=== PATIENT | female | born 1990 | race Caucasian/White ===

== ENCOUNTER 2017-05-15 20:53 | Inpatient (IN) | payer BC ==
[2017-05-15] MEDS ORDERED: Sodium Chloride 0.9% 10 ML Syringe FLUSH PRN (22:23)
[2017-05-15] MEDS ORDERED: Ondansetron 4 MG/2 ML SDV IVPUSH PRN (22:23)
[2017-05-15] MEDS ORDERED: Nalbuphine 20 MG/1 ML Amp IVPUSH PRN (22:23)
[2017-05-15] MEDS ORDERED: Oxytocin/Lactated Ringers 10 UNIT/1,000 ML BAG IV SCH (22:30)
[2017-05-15] MEDS ORDERED: Lactated Ringers 1,000 ML IV SCH (22:30)
[2017-05-15] MEDS ORDERED: Lidocaine 1% 50 ML MDV INJECT SCH (22:30)
--- NOTE | 2017-05-16 01:17 | PCM.LDHP ---
L&D History of Present Illness - General Date of Service: 05/15/17 Admit Problem/Dx: Patient Status Order with Admit Dx/Problem 05/15/17 22:23 Patient Status [ADT] Routine Admission Diagnosis/Problem Admission Diagnosis/Problem Source of Information: Patient - History of Present Illness Introduction:: 26 year old at 39w0d presents with painful contractions that started this morning and got progressively stronger over the day. Worse starting at 5 pm. No loss of fluid or bleeding. care with myself without complication. 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, Social & Family History - Tobacco Use Smoking Status *Q: Former Smoker Used Tobacco, but Quit: Yes Month Tobacco Last Used: quit 04/2015 Second Hand Smoke Exposure: No - Caffeine Use Caffeine Use: Reports: Coffee - Recreational Drug Use Recreational Drug Use: No H&P Review of Systems - Review of Systems: Review Of Systems: See Below General: Reports: No Symptoms HEENT: Reports: No Symptoms Pulmonary: Reports: No Symptoms Cardiovascular: Reports: No Symptoms Gastrointestinal: Reports: No Symptoms Genitourinary: Reports: No Symptoms Musculoskeletal: Reports: No Symptoms Skin: Reports: No Symptoms Psychiatric: Reports: No Symptoms Neurological: Reports: No Symptoms Hematologic/Lymphatic: Reports: No Symptoms Immunologic: Reports: No Symptoms L&D Exam - Exam Exam: See Below - Vital Signs Vital Signs: Last Vital Signs Temp 36.9 C 05/15/17 22:23 Pulse 100 05/15/17 22:23 Resp 16 05/15/17 22:23 BP 133/71 05/15/17 22:23 Pulse Ox Weight: 78.018 kg - OB Specific Contraction Intensity: Moderate Movement: Active Heart Tones: Present Heart Tones per Min: 130 Presentation: Vertex - Euceda Score Euceda Score Cervix Position: Midposition Euceda Score Consistency: Medium Euced[place] Score Effacement: 51-70% Euceda Score Dilation: > 5 cm Euceda Score Infant's Station: -2 Euceda Score Total: 8 - Exam General: Alert, Oriented HEENT: PERRLA, Conjunctiva Clear, EACs Clear, EOMI, Hearing Intact, Mucosa Moist & [place], Nares Patent, Normal Nasal Septum, Posterior Pharynx Clear, TMs Clear Neck: Supple, Trachea Midline Lungs: Clear to Auscultation, Normal Respiratory Effort Cardiovascular: Regular Rate, Regular Rhythm GI/Abdominal Exam: Normal Bowel Sounds, Soft, Non-Tender, No Organomegaly, No Distention, No Abnormal Bruit, No Mass, Pelvis Stable Genitourinary: Normal external exam, Normal bimanual exam, Normal speculum exam Back Exam: Normal Inspection, Full Range of Motion Extremities: Normal Inspection, Normal Range of Motion, Non-Tender, No Pedal Edema, Normal Capillary Refill Skin: Warm, Dry, Intact Neurological: Cranial Nerves Intact, Reflexes Equal Bilateral Psychiatric: Alert, Normal Affect, Normal Mood - Patient Data Lab Results Last 24 hrs: Laboratory Results - last 24 hr 05/15/17 05/15/17 Range/Units 21:21 21:21 WBC 17.27 H (3.98-10.04) K/mm3 RBC 4.36 (3.98-5.22) M/mm3 Hgb 12.7 (11.2-15.7) gm/L Hct 38.2 (34.1-44.9) % MCV 87.6 (79.4-94.8) fl MCH 29.1 (25.6-32.2) pg MCHC 33.2 (32.2-35.5) g/dl RDW Std Deviation 39.4 (36.4-46.3) fL Plt Count 195 (182-369) K/mm3 MPV 11.2 (9.4-12.3) fl Neut % (Auto) 80.9 H (34.0-71.1) % Lymph % (Auto) 13.0 L (19.3-51.7) % [place] % (Auto) 5.5 (4.7-12.5) % Eos % (Auto) 0.2 L (0.7-5.8) Baso % (Auto) 0.1 (0.1-1.2) % Neut # (Auto) 13.96 H (1.56-6.13) K/mm3 Lymph # (Auto) 2.25 (1.18-3.74) K/mm3 [place] # (Auto) 0.95 H (0.24-0.36) K/mm3 Eos # (Auto) 0.03 L (0.04-0.36) K/mm3 Baso # (Auto) 0.02 (0.01-0.08) K/mm3 Blood Type O POSITIVE Gel Antibody Screen Negative Result Diagrams: 05/15/17 21:21 Problem List Initiated/Reviewed/Updated: Yes Orders Last 24hrs: Active Orders 24 hr Category Date Time Status Patient Status [ADT] Routine ADT 05/15/17 22:23 Active Activity as Tolerated [RC] PFP Care 05/15/17 22:23 Active Communication Order [RC] ASDIRECTED Care 05/15/17 22:23 Active Notify Provider [RC] PFP Care 05/15/17 22:23 Active Notify Provider [RC] PRN Care 05/15/17 22:23 Active Peripheral IV Care [RC] . DIRECTED Care 05/15/17 22:23 Active Pump Management, Intrathecal [RC] ASDIRECTED Care 05/15/17 22:24 Active Vital Signs [RC] PER UNIT ROUTINE Care 05/15/17 22:23 Active Lactated Ringers [Ringers, Lactated] 1,000 ml Med 05/15/17 22:30 Active IV ASDIRECTED Lidocaine 1% [Xylocaine 1%] Med 05/15/17 22:30 Active 50 ml INJECT .ONETIME Nalbuphine [Nubain] Med 05/15/17 22:23 Active 10 mg IVPUSH Q2H PRN Ondansetron [Zofran] Med 05/15/17 22:23 Active 4 mg IVPUSH Q4H PRN Oxytocin/Lactated Ringers [Pitocin in LR 10 Units/1,000 Med 05/15/17 22:30 Active ML] 10 unit in 1,000 ml IV .CONTINUOUS Sodium Chloride 0.9% [Saline Flush] Med 05/15/17 22:23 Active 10 ml FLUSH ASDIRECTED PRN Electronic Heart Tones Ext w TOCO [WOMSER] Oth 05/15/17 22:23 Ordered Routine Electronic Heart Tones Internal [WOMSER] Per Unit Oth 05/15/17 22:23 Ordered Routine Peripheral IV Insertion Adult [OM.PC] Routine Oth 05/15/17 22:23 Ordered Resuscitation Status Routine Resus Stat 05/15/17 22:23 Ordered Medication Orders Lactated Ringer's (Ringers, Lactated) 1,000 mls @ 100 mls/hr IV ASDIRECTED [place] Oxytocin/Lactated Ringer's (Pitocin In Lr 10 Units/1,000 Ml) 10 unit in 1,000 mls @ 500 mls/hr IV .CONTINUOUS [place] Lidocaine HCl (Xylocaine 1%) 50 ml INJECT .ONETIME [place] Nalbuphine HCl (Nubain) 10 mg IVPUSH Q2H PRN PRN Reason: Pain (moderate 4-6) Last Admin: 05/15/17 22:48 Dose: 10 mg Ondansetron HCl (Zofran) 4 mg IVPUSH Q4H PRN PRN Reason: Nausea/Vomiting Sodium Chloride (Saline Flush) 10 ml FLUSH ASDIRECTED PRN PRN Reason: Keep Vein Open Assessment/Plan Comment:: Term labor. Doing well. Declines epidural. Anticipate unless otherwise indicated.
[2017-05-16] MEDS ORDERED: Benzocaine/Menthol 20%-0.5% Spray 56 GM Canister TOP PRN (01:40)
[2017-05-16] MEDS ORDERED: Witch Hazel Medicated Pads 100/Jar TOP PRN (01:40)
[2017-05-16] MEDS ORDERED: Lanolin 100% Cream 7 GM Tube TOP PRN (01:40)
[2017-05-16] MEDS ORDERED: Ibuprofen 600 MG Tab PO PRN (01:40)
[2017-05-16] MEDS ORDERED: Docusate Sodium 100 MG Cap PO PRN (01:40)
[2017-05-17 05:11] VITALS: BP 100/52
--- NOTE | 2017-05-17 09:07 | PCM.DCSUM1 ---
Discharge Summary - Discharge Data Discharge Date: 05/17/17 Discharge Disposition: Home, Self-Care 01 Condition: Good - Patient Summary/Data Hospital Course: Routine labor and course - Patient Instructions Diet: Usual Diet as Tolerated Activity: No Strenuous Activities Driving: May Drive Today Showering/Bathing: May Shower Wound/Incision Care: Keep Operative Site/Wound Site Clean and Dry, Change Dressing Daily, Do NOT Change Dressing Notify Provider of: Fever - Discharge Plan Home Medications: Home Meds Vits #93/Iron Fum/FA [ Formula Tablet] 1 tab PO DAILY 05/16/17 [History] Patient Handouts: Home Care Instructions for Mom Referrals: Marisa Briggs MD [Primary Care Provider] - (6 weeks) - Discharge Summary/Plan Comment DC Time >30 min.: No - General Info Date of Service: 05/17/17 Functional Status: Reports: Pain Controlled - Review of Systems General: Reports: No Symptoms HEENT: Reports: No Symptoms Pulmonary: Reports: No Symptoms Cardiovascular: Reports: No Symptoms Gastrointestinal: Reports: No Symptoms Genitourinary: Reports: No Symptoms Musculoskeletal: Reports: No Symptoms Skin: Reports: No Symptoms Neurological: Reports: No Symptoms Psychiatric: Reports: No Symptoms - Patient Data Vitals - Most Recent: Last Vital Signs Temp 36.1 C 05/17/17 04:49 Pulse 31 L 05/17/17 04:49 Resp 16 05/17/17 04:49 BP 100/52 L 05/17/17 04:49 Pulse Ox 95 05/17/17 04:49 Weight - Most Recent: 78.018 kg I&O - Last 24 hours: Intake & Output 05/16/17 05/17/17 05/17/17 22:59 06:59 14:59 Intake Total 0 Balance 0 Med Orders - Current: Current Medications Benzocaine/Menthol (Dermoplast Pain Relief [place]) 0 gm TOP ASDIRECTED PRN PRN Reason: Perineal Comfort Measure Docusate Sodium (Colace) 100 mg PO BID PRN PRN Reason: Constipation Emollient Ointment (Lansinoh Hpa) 0 gm TOP ASDIRECTED PRN PRN Reason: Sore Nipples Ibuprofen (Motrin) 600 mg PO Q6H PRN PRN Reason: Mild pain or fever [place] (Tucks) 1 pad TOP ASDIRECTED PRN PRN Reason: Hemorrhoid pain Discontinued Medications Lactated Ringer's (Ringers, Lactated) 1,000 mls @ 100 mls/hr IV ASDIRECTED [place] Oxytocin/Lactated Ringer's (Pitocin In Lr 10 Units/1,000 Ml) 10 unit in 1,000 mls @ 500 mls/hr IV .CONTINUOUS [place] Last Admin: 05/16/17 00:55 Dose: 500 mls/hr Lidocaine HCl (Xylocaine 1%) 50 ml INJECT .ONETIME [place] Last Admin: 05/16/17 01:00 Dose: 50 ml Nalbuphine HCl (Nubain) 10 mg IVPUSH Q2H PRN PRN Reason: Pain (moderate 4-6) Last Admin: 05/15/17 22:48 Dose: 10 mg Ondansetron HCl (Zofran) 4 mg IVPUSH Q4H PRN PRN Reason: Nausea/Vomiting Sodium Chloride (Saline Flush) 10 ml FLUSH ASDIRECTED PRN PRN Reason: Keep Vein Open - Exam General: Reports: Alert, Oriented HEENT: Reports: Pupils Equal, Pupils Reactive, EOMI, Mucous Membr. Moist/[place] Neck: Reports: Supple Lungs: Reports: Clear to Auscultation, Normal Respiratory Effort Cardiovascular: Reports: Regular Rate, Regular Rhythm GI/Abdominal Exam: Normal Bowel Sounds, Soft, Non-Tender, No Organomegaly, No Distention, No Abnormal Bruit, No Mass, Pelvis Stable Back Exam: Reports: Normal Inspection, Full Range of Motion Extremities: Normal Inspection, Normal Range of Motion, Non-Tender, No Pedal Edema, Normal Capillary Refill Skin: Reports: Warm, Dry, Intact Wound/Incisions: Reports: Healing Well Neurological: Reports: No New Focal Deficit Psy/Mental Status: Reports: Alert, Normal Affect, Normal Mood *Q Meaningful Use (DIS) - VTE *Q VTE Criteria *Q: - Stroke *Q Stroke Criteria *Q: - AMI *Q AMI Criteria *Q:
== END 2017-05-17 09:50 | disposition home or self-care (01) | DRG 560 ==
LOC: JD.OBCHECK 20:53 → JD.OB 20:57 → JD.OBCHECK 22:29 → JD.OB 22:31 → OBSVTOIN 05-16 00:51
PROVIDERS: ADMIT Obstetrics & Gynecology; ATTEND Obstetrics & Gynecology
PROC: 10E0XZZ Delivery of Products of Conception, External Approach (ICD-10-PCS; principal; 2017-05-16)
PROC: 10907ZC Drainage of Amniotic Fluid, Therapeutic from Products of Conception, Via Natural or Artificial Opening (ICD-10-PCS; 2017-05-16)
PROC: 0HQ9XZZ Repair Perineum Skin, External Approach (ICD-10-PCS; 2017-05-16)
DX: O70.0 First degree perineal laceration during delivery (principal); Z3A.39 39 weeks gestation of pregnancy; Z37.0 Single live birth; Z88.1 Allergy status to other antibiotic agents; Z87.891 Personal history of nicotine dependence
CPT/HCPCS: 36415; 59300; 59409; 85025; 86850; 86900; 86901; J2300; J2590

== ENCOUNTER 2017-05-24 07:48 | Emergency (ER) | payer BC ==
[2017-05-24] MEDS ORDERED: Sodium Chloride 0.9% 10 ML Syringe FLUSH PRN (07:57)
[2017-05-24] MEDS ORDERED: HYDROmorphone 0.5 MG/0.5 ML Syringe IVPUSH ONE ×2 (07:57→08:34)
[2017-05-24] MEDS ORDERED: Sodium Chloride 0.9% 500 ML IV ONE ×2 (08:02→09:15)
[2017-05-24] MEDS ORDERED: LORazepam 2 MG/ML MDV IVPUSH ONE (08:02)
[2017-05-24] MEDS ORDERED: Ondansetron 4 MG/2 ML SDV IVPUSH ONE (08:02)
--- NOTE | 2017-05-24 08:27 | EDM.PDOC ---
ED HPI GENERAL MEDICAL PROBLEM - General Chief Complaint: Abdominal Pain Stated Complaint: ABDOMINAL PAIN/POST 1 WEEK Time Seen by Provider: 05/24/17 07:56 Source of Information: Reports: Patient, RN Notes Reviewed - History of Present Illness INITIAL COMMENTS - FREE TEXT/NARRATIVE: Plan 26-year-old female comes in with sudden onset of severe pelvic pain. This started about 30-40 minutes ago. She had been totally pain-free during the night and earlier this morning. She is about 8 days , status post vaginal delivery with no apparent complications. He has been having normal flow. The does not have bright red vaginal bleeding this morning nor has she been passing clots or tissue. She does not feel like she has had voiding symptomatology and has had no difficulty emptying her bladder. The pain is severe lower mid pelvis, described as steady discomfort with possible superimposed cramping with some radiation to her back. 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: Reports: 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 Denies: Vomiting : Reports: Other (She's been having but seems to been normal flow) . Denies: Dysuria Musculoskeletal: Reports: Back Pain Skin: Reports: No Symptoms Neurological: Reports: No Symptoms ED EXAM, RENAL/ - Physical Exam Exam: See Below General Appearance: Alert, Severe Distress Eye Exam: Bilateral Eye: PERRL Throat/Mouth: Normal Inspection Head: No: Facial Swelling Neck: Supple, Full Range of Motion Respiratory/Chest: No Respiratory Distress, Lungs Clear, Normal Breath Sounds Cardiovascular: Regular Rate, Rhythm GI/Abdominal: Tender (very tender lower mid and R pelvis). No: Guarding, Rebound Back Exam: No: CVA Tenderness (L), CVA Tenderness (R) Extremities: Normal Inspection, Normal Range of Motion Neurological: Alert, Oriented, No Motor/Sensory Deficits Skin Exam: Warm, Dry, Normal Color Course - Vital Signs Last Recorded V/S: Last Vital Signs Temp 97.7 F 05/24/17 10:57 Pulse 62 05/24/17 10:57 Resp 16 05/24/17 10:57 BP 91/53 L 05/24/17 10:57 Pulse Ox 97 05/24/17 10:57 - Orders/Labs/Meds Orders: Active Orders 24 hr Category Date Time Status Insert Gomes Catheter [Insert Urinary Catheter] [OM.PC] Care 05/24/17 09:20 Ordered Stat Peripheral IV Care [RC] . DIRECTED Care 05/24/17 07:57 Active Ready for Discharge [RC] PER UNIT ROUTINE Care 05/24/17 10:20 Active Urinary Catheter Assessment [RC] ASDIRECTED Care 05/24/17 09:20 Active Transvaginal Non OB [US] Stat Exams 05/24/17 08:04 Taken CULTURE GENITAL [RM] Stat Lab 05/24/17 10:05 Received Peripheral IV Insertion Adult [OM.PC] Stat Oth 05/24/17 07:57 Ordered Labs: Laboratory Tests 05/24/17 05/24/17 Range/Units 07:55 09:25 WBC 8.44 (3.98-10.04) K/mm3 RBC 4.84 (3.98-5.22) M/mm3 Hgb 14.2 (11.2-15.7) gm/L Hct 42.8 (34.1-44.9) % MCV 88.4 (79.4-94.8) fl MCH 29.3 (25.6-32.2) pg MCHC 33.2 (32.2-35.5) g/dl RDW Std Deviation 39.8 (36.4-46.3) fL Plt Count 459 H (182-369) K/mm3 MPV 9.8 (9.4-12.3) fl Neut % (Auto) 47.8 (34.0-71.1) % Lymph % (Auto) 43.1 (19.3-51.7) % [place] % (Auto) 7.1 (4.7-12.5) % Eos % (Auto) 1.4 (0.7-5.8) Baso % (Auto) 0.5 (0.1-1.2) % Neut # (Auto) 4.03 (1.56-6.13) K/mm3 Lymph # (Auto) 3.64 (1.18-3.74) K/mm3 [place] # (Auto) 0.60 H (0.24-0.36) K/mm3 Eos # (Auto) 0.12 (0.04-0.36) K/mm3 Baso # (Auto) 0.04 (0.01-0.08) K/mm3 Urine Color Yellow (Yellow) Urine Appearance Clear (Clear) Urine pH 6.0 (5.0-8.0) Ur Specific [place] 1.020 (1.005-1.030) Urine Protein Negative (Negative) Urine Glucose (UA) Negative (Negative) Urine Ketones Negative (Negative) Urine Occult Blood Negative (Negative) Urine Nitrite Negative (Negative) Urine Bilirubin Negative (Negative) Urine Urobilinogen 0.2 (0.2-1.0) Ur Leukocyte Esterase Negative (Negative) Urine RBC Not seen (0-5) /hpf Urine WBC 0-5 (0-5) /hpf Ur Epithelial Cells 0-5 (0-5) /hpf Urine Bacteria Few (FEW) /hpf Urine Mucus Few (FEW) /hpf Meds: Medications Discontinued Medications Generic Name Dose Route Start Last Admin Trade Name Freq PRN Reason Stop Dose Admin Hydromorphone HCl 0.5 mg 05/24/17 07:57 05/24/17 08:00 Dilaudid IVPUSH 05/24/17 07:58 0.5 mg ONETIME ONE Administration Hydromorphone HCl 0.5 mg 05/24/17 08:34 05/24/17 08:37 Dilaudid IVPUSH 05/24/17 08:35 0.5 mg ONETIME ONE Administration Sodium Chloride 500 mls @ 999 mls/hr 05/24/17 08:02 05/24/17 08:13 Normal Saline IV 05/24/17 08:32 999 mls/hr .BOLUS ONE Administration Sodium Chloride 500 mls @ 999 mls/hr 05/24/17 09:15 05/24/17 09:30 Normal Saline IV 05/24/17 09:45 999 mls/hr .BOLUS ONE Administration Lorazepam 0.5 mg 05/24/17 08:02 05/24/17 08:08 Ativan IVPUSH 05/24/17 08:03 0.5 mg ONETIME ONE Administration Ondansetron HCl 4 mg 05/24/17 08:02 05/24/17 08:10 Zofran IVPUSH 05/24/17 08:03 4 mg ONETIME ONE Administration Sodium Chloride 10 ml 05/24/17 07:57 05/24/17 08:12 Saline Flush FLUSH 10 ml ASDIRECTED PRN Administration Keep Vein Open - Re-Assessments/Exams Free Text/Narrative Re-Assessment/Exam: 05/24/17 08:25. Much more comfortable after Dilaudid 0.5 mg IV, Ativan 0.5 mg IV. He still does have lower midline pelvic discomfort that she now states is more to the right. Main focus on arrival to get her more comfortable. Have not done pelvic exam yet, US tech is here so going to get that done now. 08:35. Pain starting to worsen again so will carefully give another 0.5 mg dilaudid. 05/24/17 10:16. Dr Briggs here to see her, US is back, nothing apparent ovarian, good blood flow to both ovaries, uterus appears relatively normal for 8 days . Pt's level of pain much improved from arrival. Dr Briggs considering discharge options at this time. Departure - Departure Time of Disposition: 10:51 Disposition: Home, Self-Care 01 Condition: Fair Clinical Impression: Pelvic pain - Discharge Information Instructions: Pelvic Pain, Female, [id number] Referrals: Marisa Briggs MD [Primary Care Provider] - (Sunday in clinic. Sooner if any issues.) Forms: ED Department Discharge Additional Instructions: Rest, pain medication and antibiotics as prescribed by Dr. Mcguire, Follow up with Dr. Mcguire as planned, return to ED as needed if symptoms worsening in any way ED Communication - Discussed Case With (1) Discussed Case With (1): Outpatient Provider (Dr Briggs, emergency room physician assistant who has been here to see patient.) - My Orders Last 24 Hours: My Active Orders 05/24/17 07:57 Peripheral IV Care [RC] . DIRECTED Peripheral IV Insertion Adult [OM.PC] Stat 05/24/17 08:04 Transvaginal Non OB [US] Stat 05/24/17 09:20 Insert Gomes Catheter [Insert Urinary Catheter] [OM.PC] Stat Urinary Catheter Assessment [RC] ASDIRECTED - Assessment/Plan Last 24 Hours: My Active Orders 05/24/17 07:57 Peripheral IV Care [RC] . DIRECTED Peripheral IV Insertion Adult [OM.PC] Stat 05/24/17 08:04 Transvaginal Non OB [US] Stat 05/24/17 09:20 Insert Gomes Catheter [Insert Urinary Catheter] [OM.PC] Stat Urinary Catheter Assessment [RC] ASDIRECTED
--- NOTE | 2017-05-24 10:34 | PCM.CONS ---
H&P History of Present Illness - General Date of Service: 05/24/17 Admit Problem/Dx: pelvic pain 8 days post delivery. Lower Abdominal Pain Score (Numeric/FACES): 10 - Related Data Allergies/Adverse Reactions: Allergies Allergy/AdvReac Type Severity Reaction Status Date / Time celecoxib [From Celebrex] Allergy Severe Swelling Verified 05/24/17 07:54 sulfamethoxazole Allergy Itching Verified 05/24/17 07:54 [From Bactrim] trimethoprim [From Bactrim] Allergy Itching Verified 05/24/17 07:54 Home Medications: Home Meds Vits #93/Iron Fum/FA [ Formula Tablet] 1 tab PO DAILY 05/16/17 [History] Ibuprofen [Motrin] 600 mg PO Q6H PRN 05/24/17 [History] Past Medical History - Past Health History Medical/Surgical History: Denies Medical/Surgical History HEENT History: Reports: Impaired Vision Other HEENT History: wears eyeglasses Genitourinary History: Reports: UTI, Recurrent [employer]ING History: Reports: Endometriosis, Other OB/BYN History: ovarian cyst. Musculoskeletal History: Reports: Other (See Below) Other Musculoskeletal History: bursitis L) elbow/aspiration Dermatologic History: Reports: Eczema - Infectious Disease History Infectious Disease History: Reports: Chicken Pox Social & Family History - Tobacco Use Smoking Status *Q: Former Smoker Used Tobacco, but Quit: Yes Month Tobacco Last Used: quit 04/2015 Second Hand Smoke Exposure: No - Caffeine Use Caffeine Use: Reports: Coffee - Recreational Drug Use Recreational Drug Use: No H&P Review of Systems - Review of Systems: Review Of Systems: See Below General: Reports: No Symptoms HEENT: Reports: No Symptoms Pulmonary: Reports: No Symptoms Cardiovascular: Reports: No Symptoms, Blood Pressure Problem Gastrointestinal: Reports: Abdominal Pain. Denies: Vomiting Genitourinary: Reports: No Symptoms Musculoskeletal: Reports: No Symptoms Skin: Reports: No Symptoms Psychiatric: Reports: No Symptoms Neurological: Reports: No Symptoms Hematologic/Lymphatic: Reports: No Symptoms Immunologic: Reports: No Symptoms Exam - Exam Exam: See Below - Vital Signs Vital Signs: Last Vital Signs Temp 36.1 C 05/24/17 07:48 Pulse 50 L 05/24/17 09:30 Resp 16 05/24/17 09:30 BP 94/56 L 05/24/17 09:30 Pulse Ox 99 05/24/17 09:30 Weight: 70.307 kg - Exam General: Alert, Oriented, Mild Distress HEENT: PERRLA, Hearing Intact, Mucosa Moist & [place], Nares Patent, Normal Nasal Septum, Posterior Pharynx Clear, Conjunctiva Clear, EOMI, EACs Clear, TMs Clear Neck: Supple, Trachea Midline, 2 Lungs: Clear to Auscultation, Normal Respiratory Effort Cardiovascular: Regular Rate, Regular Rhythm GI/Abdominal Exam: Normal Bowel Sounds, Soft, Non-Tender, No Organomegaly, No Distention, No Abnormal Bruit, No Mass, Pelvis Stable (Female) Exam: Normal External Exam, Normal Speculum Exam, Other (uterine tenderness) Rectal (Female) Exam: Normal Exam Back Exam: Normal Inspection, Full Range of Motion, NT Extremities: Normal Inspection, Normal Range of Motion, Non-Tender, No Pedal Edema, Normal Capillary Refill Skin: Warm, Dry, Intact Neurological: Cranial Nerves Intact, Reflexes Equal Bilateral Neuro Extensive - Mental Status: Alert, Oriented x3, Normal Mood/Affect, Normal Cognition Neuro Extensive - Motor, Sensory, Reflexes: CN II-XII Intact, Normal Gait, Normal Reflexes Psychiatric: Alert, Normal Affect, Normal Mood - Patient Data Lab Results Last 24 hrs: Laboratory Results - last 24 hr 05/24/17 05/24/17 Range/Units 07:55 09:25 WBC 8.44 (3.98-10.04) K/mm3 RBC 4.84 (3.98-5.22) M/mm3 Hgb 14.2 (11.2-15.7) gm/L Hct 42.8 (34.1-44.9) % MCV 88.4 (79.4-94.8) fl MCH 29.3 (25.6-32.2) pg MCHC 33.2 (32.2-35.5) g/dl RDW Std Deviation 39.8 (36.4-46.3) fL Plt Count 459 H (182-369) K/mm3 MPV 9.8 (9.4-12.3) fl Neut % (Auto) 47.8 (34.0-71.1) % Lymph % (Auto) 43.1 (19.3-51.7) % [place] % (Auto) 7.1 (4.7-12.5) % Eos % (Auto) 1.4 (0.7-5.8) Baso % (Auto) 0.5 (0.1-1.2) % Neut # (Auto) 4.03 (1.56-6.13) K/mm3 Lymph # (Auto) 3.64 (1.18-3.74) K/mm3 [place] # (Auto) 0.60 H (0.24-0.36) K/mm3 Eos # (Auto) 0.12 (0.04-0.36) K/mm3 Baso # (Auto) 0.04 (0.01-0.08) K/mm3 Urine Color Yellow (Yellow) Urine Appearance Clear (Clear) Urine pH 6.0 (5.0-8.0) Ur Specific [place] 1.020 (1.005-1.030) Urine Protein Negative (Negative) Urine Glucose (UA) Negative (Negative) Urine Ketones Negative (Negative) Urine Occult Blood Negative (Negative) Urine Nitrite Negative (Negative) Urine Bilirubin Negative (Negative) Urine Urobilinogen 0.2 (0.2-1.0) Ur Leukocyte Esterase Negative (Negative) Urine RBC Not seen (0-5) /hpf Urine WBC 0-5 (0-5) /hpf Ur Epithelial Cells 0-5 (0-5) /hpf Urine Bacteria Few (FEW) /hpf Urine Mucus Few (FEW) /hpf Result Diagrams: 05/24/17 07:55 Consult PN Assessment/Plan Procedures: Procedures GLUCOSE TEST (02/08/17) HEMOGLOBIN (02/08/17) OB US >/= 14 WKS SNGL FETUS (01/09/17) RBC ANTIBODY SCREEN (02/08/17) ROUTINE VENIPUNCTURE (02/08/17) URINALYSIS AUTO W/SCOPE (01/27/15) Problem List Initiated/Reviewed/Updated: Yes My Orders Last 24 Hours: My Active Orders 05/24/17 10:20 Ready for Discharge [RC] PER UNIT ROUTINE Plan: patient with sudden severe onset of pain. Differential diagnosis included hematoma, group A strep endometritis, or other endometritis. Despite normal labs we will treat empirically for endometritis and patient will see me early next week.
[2017-05-24 10:59] VITALS: BP 91/53
--- NOTE | 2017-05-28 16:02 | US ---
Pelvic ultrasound: Multiple real-time images were obtained transvaginally. Comparison: No prior study. Uterus is anteverted. No myometrial abnormality is seen. Endometrial thickness is normal at 1.5 cm. No free fluid is seen. Ovaries are seen showing follicles. No larger cyst or solid abnormality is seen. Impression: 1. Endometrial thickness at 1.5 cm felt to be within normal limits. 2. Pelvic ultrasound is unremarkable. Diagnostic code #1 I mostly agree with preliminary report issued by [facility], please see above (ad report finalized on 05/24/17, 11:13 AM Central Time)
== END 2017-05-24 11:05 | disposition home or self-care (01) ==
LOC: SUPCPDRO 07:48 → JD.ED 07:48
DX: R10.2 Pelvic and perineal pain (principal); Z88.1 Allergy status to other antibiotic agents; Z88.2 Allergy status to sulfonamides; Z88.8 Allergy status to other drugs, medicaments and biological substances; Z87.891 Personal history of nicotine dependence
CPT/HCPCS: 36415; 76830; 81001; 85025; 87070; 87077; 96361; 96374; 96375; 96376; 99285; J1170; J2060; J2405; J7040; J7050; P9612; 99284

== ENCOUNTER 2020-02-10 15:39 | Inpatient (IN) | payer BC ==
[2020-02-10] MEDS ORDERED: Sodium Chloride 0.9% 10 ML Syringe FLUSH PRN (15:41)
[2020-02-10] MEDS ORDERED: Nalbuphine 10 MG/ML Syringe IVPUSH PRN (15:41)
[2020-02-10] MEDS ORDERED: Ampicillin 2 GM in Sodium Chloride 0.9% 100 ML IV ONE (15:41)
[2020-02-10] MEDS ORDERED: Lactated Ringers 1,000 ML IV SCH (15:45)
[2020-02-10] MEDS ORDERED: Ampicillin 2 GM AdvVial IV ONE (15:53)
[2020-02-10] MEDS ORDERED: Ampicillin 1 GM in Sodium Chloride 0.9% 100 ML IV SCH (19:45)
[2020-02-10] MEDS ORDERED: Oxytocin/Lactated Ringers 10 UNIT/1,000 ML BAG IV SCH (20:00)
--- NOTE | 2020-02-10 22:09 | PCM.LDHP ---
L&D History of Present Illness - General Date of Service: 02/10/20 Admit Problem/Dx: Patient Status Order with Admit Dx/Problem 02/10/20 15:42 Patient Status [ADT] Routine Admission Diagnosis/Problem Admission Diagnosis/Problem Labor established - History of Present Illness Introduction:: 29 year old at 38w2 here in active labor. care with myself without complications. - Related Data Allergies/Adverse Reactions: Allergies Allergy/AdvReac Type Severity Reaction Status Date / Time celecoxib [From Celebrex] Allergy Intermediate Swelling Verified 02/10/20 17:43 sulfamethoxazole Allergy Mild Itching Verified 02/10/20 17:43 [From Bactrim] trimethoprim [From Bactrim] Allergy Mild Itching Verified 02/10/20 17:43 Home Medications: Home Meds Vits #93/Iron Fum/FA [ Formula Tablet] 1 tab PO DAILY 05/16/17 [History] Calcium Carbonate [Calcium] 600 mg PO DAILY 02/10/20 [History] L.acidoph,Paracasei, B.lactis [Probiotic] 1 each PO DAILY 02/10/20 [History] Past Medical History - Past Health History Medical/Surgical History: Denies Medical/Surgical History HEENT History: Reports: Impaired Vision Other HEENT History: wears eyeglasses Genitourinary History: Reports: UTI, Recurrent ACTIVITY THERAPIST History: Reports: Endometriosis, Other OB/BYN History: ovarian cyst., exploratory lap for endo Musculoskeletal History: Reports: Other (See Below) Other Musculoskeletal History: bursitis L) elbow/aspiration Dermatologic History: Reports: Eczema - Infectious Disease History Infectious Disease History: Reports: Chicken Pox Social & Family History - Tobacco Use Smoking Status *Q: Never Smoker Second Hand Smoke Exposure: No - Caffeine Use Caffeine Use: Reports: None - Recreational Drug Use Recreational Drug Use: No H&P Review of Systems - Review of Systems: Review Of Systems: See Below General: Reports: No Symptoms HEENT: Reports: No Symptoms Pulmonary: Reports: No Symptoms Cardiovascular: Reports: No Symptoms Gastrointestinal: Reports: No Symptoms Genitourinary: Reports: No Symptoms Musculoskeletal: Reports: No Symptoms Skin: Reports: No Symptoms Psychiatric: Reports: No Symptoms Neurological: Reports: No Symptoms Hematologic/Lymphatic: Reports: No Symptoms Immunologic: Reports: No Symptoms L&D Exam - Exam Exam: See Below - Vital Signs Vital Signs: Last Vital Signs Temp 37.2 C 02/10/20 15:41 Pulse 97 02/10/20 15:41 Resp 15 02/10/20 15:41 BP 132/84 02/10/20 15:41 Pulse Ox Weight: 81.102 kg - OB Specific Contraction Intensity: Moderate to Strong Movement: Active Heart Tones: Present Heart Rate (FHR) Variability: Moderate (6-25 bmp) Presentation: Vertex - Euceda Score Euceda Score Cervix Position: Anterior Euceda Score Effacement: >80% Euceda Score Dilation: 3-4 cm Euceda Score 's Station: -2 - Exam General: Alert, Oriented HEENT: PERRLA, Conjunctiva Clear, EACs Clear, EOMI, Hearing Intact, Mucosa Moist & [place], Nares Patent, Normal Nasal Septum, Posterior Pharynx Clear, TMs Clear Neck: Supple, Trachea Midline Lungs: Clear to Auscultation, Normal Respiratory Effort Cardiovascular: Regular Rate, Regular Rhythm GI/Abdominal Exam: Normal Bowel Sounds, Soft, Non-Tender, No Organomegaly, No Distention, No Abnormal Bruit, No Mass, Pelvis Stable Back Exam: Normal Inspection, Full Range of Motion Extremities: Normal Inspection, Normal Range of Motion, Non-Tender, No Pedal Edema, Normal Capillary Refill Skin: Warm, Dry, Intact Neurological: Cranial Nerves Intact, Reflexes Equal Bilateral Psychiatric: Alert, Normal Affect, Normal Mood - Patient Data Lab Results Last 24 hrs: Laboratory Results - last 24 hr 02/10/20 02/10/20 02/10/20 Range/Units 15:55 15:55 15:57 WBC 10.99 H (3.98-10.04) K/mm3 RBC 4.60 (3.98-5.22) M/mm3 Hgb 12.4 (11.2-15.7) gm/dl Hct 39.1 (34.1-44.9) % MCV 85.0 D (79.4-94.8) fl MCH 27.0 (25.6-32.2) pg MCHC 31.7 L (32.2-35.5) g/dl RDW Std Deviation 39.0 (36.4-46.3) fL Plt Count 194 (182-369) K/mm3 MPV 12.0 (9.4-12.3) fl Neut % (Auto) 75.4 H (34.0-71.1) % Lymph % (Auto) 18.5 L (19.3-51.7) % [place] % (Auto) 5.3 (4.7-12.5) % Eos % (Auto) 0.3 L (0.7-5.8) Baso % (Auto) 0.1 (0.1-1.2) % Neut # (Auto) 8.30 H (1.56-6.13) K/mm3 Lymph # (Auto) 2.03 (1.18-3.74) K/mm3 [place] # (Auto) 0.58 H (0.24-0.36) K/mm3 Eos # (Auto) 0.03 L (0.04-0.36) K/mm3 Baso # (Auto) 0.01 (0.01-0.08) K/mm3 COVID-19 (SAMM) Negative (NEGATIVE) Blood Type O POSITIVE Gel Antibody Screen Negative Result Diagrams: 02/10/20 15:55 Problem List Initiated/Reviewed/Updated: Yes Orders Last 24hrs: Active Orders 24 hr Category Date Time Status Patient Status [ADT] Routine ADT 02/10/20 15:42 Active Activity as Tolerated [RC] PFP Care 02/10/20 15:41 Active Communication Order [RC] ASDIRECTED Care 02/10/20 15:41 Active Heart Tones [RC] ASDIRECTED Care 02/10/20 15:42 Active Notify Provider [RC] PFP Care 02/10/20 15:41 Active Notify Provider [RC] PRN Care 02/10/20 15:41 Active Peripheral IV Care [RC] . DIRECTED Care 02/10/20 15:42 Active Regular Diet [DIET] Diet 02/10/20 Lunch Active RAPID PLASMA REAGIN,RPR [CHEM] Routine Lab 02/10/20 15:55 Received Ampicillin 1 gm Med 02/10/20 19:45 Active Sodium Chloride 0.9% [Normal Saline] 100 ml IV Q4H Lactated Ringers [Ringers, Lactated] 1,000 ml Med 02/10/20 15:45 Active IV ASDIRECTED Nalbuphine [Nubain] Med 02/10/20 15:41 Active 10 mg IVPUSH Q2H PRN Oxytocin/Lactated Ringers [Pitocin in LR 10 Units/1,000 Med 02/10/20 20:00 Active ML] 10 unit in 1,000 ml IV ASDIRECTED Sodium Chloride 0.9% [Saline Flush] Med 02/10/20 15:41 Active 10 ml FLUSH ASDIRECTED PRN Electronic Heart Tones Ext w TOCO [WOMSER] Oth 02/10/20 15:41 Ordered Routine Electronic Heart Tones Internal [WOMSER] Per Unit Oth 02/10/20 15:41 Ordered Routine Peripheral IV Insertion Adult [OM.PC] Routine Oth 02/10/20 15:41 Ordered Resuscitation Status Routine Resus Stat 02/10/20 15:41 Ordered Medication Orders Ampicillin Sodium 1 gm/ Sodium (Chloride) 100 mls @ 200 mls/hr IV Q4H [place] Last Admin: 02/10/20 19:30 Dose: 200 mls/hr Documented by: LEILA Lactated Ringer's (Ringers, Lactated) 1,000 mls @ 100 mls/hr IV ASDIRECTED [place] Last Admin: 02/10/20 16:16 Dose: 100 mls/hr Documented by: [email or web address] Oxytocin/Lactated Ringer's (Pitocin In Lr 10 Units/1,000 Ml) 10 unit in 1,000 mls @ 500 mls/hr IV ASDIRECTED [place]; Protocol Nalbuphine HCl (Nubain) 10 mg IVPUSH Q2H PRN PRN Reason: Pain Last Admin: 02/10/20 21:10 Dose: 10 mg Documented by: [email or web address] Sodium Chloride (Saline Flush) 10 ml FLUSH ASDIRECTED PRN PRN Reason: Keep Vein Open Assessment/Plan Comment:: Term labor. GBS positive. Anticipate . AROM once at time of second dose of antibiotics.
--- NOTE | 2020-02-10 22:14 | PCM.SN.2 ---
- Free Text/Narrative Note: Stage I - Patient presented in active labor with pressure and contractions and cervical change from posterior and 3 in clinic to 5 cm. AROM clear fluid. Progressed to complete with overall reassuring heart tones. Stage II - of viable female, weight 7#6oz, 8/9 apgars at 2152. Head delivered in controlled manner over intact perineum. Body and shoulders atraumatically. To maternal abdomen. Positive cry. Cord clamped and cut. Stage III - of intact placenta. 3vc. Calcifications. EBL 200
[2020-02-10] MEDS ORDERED: Hydrocortisone Acetate 25 MG Supp RECTAL PRN (22:21)
[2020-02-10] MEDS ORDERED: Ibuprofen 600 MG Tab PO PRN (22:21)
[2020-02-10] MEDS ORDERED: Witch Hazel Medicated Pads 40/Jar TOP PRN (22:21)
[2020-02-10] MEDS ORDERED: Benzocaine/Menthol 20%-0.5% Spray 56 GM Canister TOP PRN (22:21)
[2020-02-10] MEDS ORDERED: Docusate Sodium 100 MG Cap PO PRN (22:21)
[2020-02-10] MEDS ORDERED: Acetaminophen 325 MG Tab PO PRN (22:21)
[2020-02-12 04:31] VITALS: BP 111/67; PULSE 67
--- NOTE | 2020-02-12 07:42 | PCM.DCSUM1 ---
Discharge Summary - Hospital Course Diagnosis: Stroke: No - Discharge Data Discharge Date: 02/12/20 Discharge Disposition: Home, Self-Care 01 Condition: Good - Referral to Home Health Primary Care Physician: Marisa Briggs MD - Patient Instructions Diet: Usual Diet as Tolerated Activity: No Strenuous Activities Driving: May Drive Today Showering/Bathing: May Shower Notify Provider of: Fever, Increased Pain, Swelling and Redness, Drainage, Nausea and/or Vomiting - Discharge Plan *PRESCRIPTION DRUG MONITORING PROGRAM REVIEWED*: No *COPY OF PRESCRIPTION DRUG MONITORING REPORT IN PATIENT WILD: No Home Medications: Home Meds Vits #93/Iron Fum/FA [ Formula Tablet] 1 tab PO DAILY 05/16/17 [History] Calcium Carbonate [Calcium] 600 mg PO DAILY 02/10/20 [History] L.acidoph,Paracasei, B.lactis [Probiotic] 1 each PO DAILY 02/10/20 [History] - Discharge Summary/Plan Comment DC Time >30 min.: No - General Info Date of Service: 02/12/20 Functional Status: Reports: Pain Controlled - Review of Systems General: Reports: No Symptoms HEENT: Reports: No Symptoms Pulmonary: Reports: No Symptoms Cardiovascular: Reports: No Symptoms Gastrointestinal: Reports: No Symptoms Genitourinary: Reports: No Symptoms Musculoskeletal: Reports: No Symptoms Skin: Reports: No Symptoms Neurological: Reports: No Symptoms Psychiatric: Reports: No Symptoms - Patient Data Vitals - Most Recent: Last Vital Signs Temp 36.6 C 02/12/20 03:08 Pulse 67 02/12/20 03:08 Resp 16 02/11/20 16:32 BP 111/67 02/12/20 03:08 Pulse Ox 97 02/12/20 03:08 Weight - Most Recent: 81.102 kg I&O - Last 24 hours: Intake & Output 02/11/20 02/12/20 02/12/20 22:59 06:59 14:59 Intake Total 660 Balance 660 Med Orders - Current: Current Medications Acetaminophen (Tylenol) 650 mg PO Q4H PRN PRN Reason: mild pain or fever Benzocaine/Menthol (Dermoplast Pain Relief Sublimity) 0 gm TOP ASDIRECTED PRN PRN Reason: Perineal Comfort Measure Docusate Sodium (Colace) 100 mg PO BID PRN PRN Reason: Constipation Hydrocortisone Acetate (Anucort-Hc) 25 mg RECTAL BID PRN PRN Reason: Hemorrhoid pain Ibuprofen (Motrin) 600 mg PO Q6H PRN PRN Reason: Mild pain or fever [place] (Tucks) 1 pad TOP ASDIRECTED PRN PRN Reason: Pain Discontinued Medications Ampicillin Sodium (Ampicillin) Confirm Administered Dose 2 gm IV .STK-MED ONE Stop: 02/10/20 15:54 Last Admin: 02/10/20 16:17 Dose: Not Given Documented by: Ampicillin Sodium 2 gm/ Sodium (Chloride) 100 mls @ 200 mls/hr IV ONETIME ONE Stop: 02/10/20 16:10 Last Admin: 02/10/20 16:16 Dose: 200 mls/hr Documented by: Ampicillin Sodium 1 gm/ Sodium (Chloride) 100 mls @ 200 mls/hr IV Q4H [facility] Last Admin: 02/10/20 19:30 Dose: 200 mls/hr Documented by: Lactated Ringer's (Ringers, Lactated) 1,000 mls @ 100 mls/hr IV ASDIRECTED [facility] Last Admin: 02/10/20 16:16 Dose: 100 mls/hr Documented by: Oxytocin/Lactated Ringer's (Pitocin In Lr 10 Units/1,000 Ml) 10 unit in 1,000 mls @ 500 mls/hr IV ASDIRECTED [facility]; Protocol Last Admin: 02/10/20 21:55 Dose: 900 mls/hr Documented by: Nalbuphine HCl (Nubain) 10 mg IVPUSH Q2H PRN PRN Reason: Pain Last Admin: 02/10/20 21:10 Dose: 10 mg Documented by: Sodium Chloride (Saline Flush) 10 ml FLUSH ASDIRECTED PRN PRN Reason: Keep Vein Open - Exam General: Reports: Alert, Oriented HEENT: Reports: Pupils Equal, Pupils Reactive, EOMI, Mucous Membr. Moist/[place] Neck: Reports: Supple Lungs: Reports: Clear to Auscultation, Normal Respiratory Effort Cardiovascular: Reports: Regular Rate, Regular Rhythm GI/Abdominal Exam: Normal Bowel Sounds, Soft, Non-Tender, No Organomegaly, No Distention, No Abnormal Bruit, No Mass, Pelvis Stable Rectal (Female) Exam: Normal Exam Back Exam: Reports: Normal Inspection, Full Range of Motion Extremities: Normal Inspection, Normal Range of Motion, Non-Tender, No Pedal Edema, Normal Capillary Refill Skin: Reports: Warm, Dry, Intact Wound/Incisions: Reports: Healing Well Neurological: Reports: No New Focal Deficit Psy/Mental Status: Reports: Alert, Normal Affect, Normal Mood
== END 2020-02-12 10:30 | disposition home or self-care (01) | DRG 560 ==
LOC: JD.OBCHECK 15:39 → JD.OB 15:42 → OBSVTOIN 21:52 → JD.OB 21:53
PROVIDERS: ADMIT Obstetrics & Gynecology; ATTEND Obstetrics & Gynecology
PROC: 10E0XZZ Delivery of Products of Conception, External Approach (ICD-10-PCS; principal; 2020-02-10)
PROC: 10907ZC Drainage of Amniotic Fluid, Therapeutic from Products of Conception, Via Natural or Artificial Opening (ICD-10-PCS; 2020-02-10)
DX: O99.824 Streptococcus B carrier state complicating childbirth (principal); Z88.1 Allergy status to other antibiotic agents; Z88.2 Allergy status to sulfonamides; Z3A.38 38 weeks gestation of pregnancy; Z37.0 Single live birth; Z11.59 Encounter for screening for other viral diseases
CPT/HCPCS: 36415; 51701; 59025; 59409; 85025; 86592; 86850; 86900; 86901; J0290; J2300; J2590; J7050; J7120; U0002

== ENCOUNTER 2023-08-17 04:03 | Inpatient (IN) | payer OTHER ==
[2023-08-17] MEDS ORDERED: Ondansetron 4 MG/2 ML SDV IVPUSH PRN (05:07)
[2023-08-17] MEDS ORDERED: Lidocaine 1% 50 ML MDV INJECT PRN (05:07)
[2023-08-17] MEDS ORDERED: Oxytocin/Lactated Ringers 30 UNIT/500 ML BAG IV SCH (05:15)
[2023-08-17] MEDS ORDERED: Lactated Ringers 1,000 ML IV SCH (05:15)
[2023-08-17] MEDS: Ampicillin 2 GM in Sodium Chloride 0.9% 100 ML IV ONE (05:22)
[2023-08-17 05:51] LABS: BASOPHILS PERCENT AUTO 0.3 % (0.0-1.0); EOSINOPHILS ABSOLUTE AUTO 0.1 K/mm3 (0.0-0.4); EOSINOPHILS PERCENT AUTO 0.5 % (0.0-6.0); HEMATOCRIT 38.9 % (37.0-47.0); HEMOGLOBIN 12.9 gm/dl (12.0-16.0); IMMATURE GRAN ABSOLUTE AUTO 0.06 K/mm3 (0.00-0.05); IMMATURE GRAN PERCENT AUTO 0.5 % (0.0-0.4); MEAN CORPUSCULAR HEMOGLOBIN 28.9 pg (28.0-32.0); MEAN CORPUSCULAR HGB CONC 33.2 g/dl (32.0-36.0); MEAN CORPUSCULAR VOLUME 87.2 fl (83.0-99.0); MEAN PLATELET VOLUME 10.9 fl (9.4-12.3); MONOCYTES ABSOLUTE AUTO 0.7 K/mm3 (0.0-0.8); MONOCYTES PERCENT AUTO 5.3 % (0.0-8.0); NEUTROPHILS ABSOLUTE AUTO 9.6 K/mm3 (1.8-7.7); NEUTROPHILS PERCENT AUTO 77.4 % (41.0-71.0); PLATELET COUNT,PLT 216 K/mm3 (150-400); RED BLOOD CELL COUNT 4.46 M/mm3 (4.10-5.30); WHITE BLOOD CELL COUNT,WBC 12.39 K/mm3 (3.9-11.3)
[2023-08-17] MEDS: Ampicillin 1 GM in Sodium Chloride 0.9% 100 ML IV SCH (09:11)
[2023-08-17] MEDS: Nalbuphine HCl 10 MG/ 1ML Amp IVPUSH PRN (12:51)
[2023-08-17] MEDS: Oxytocin/Lactated Ringers 30 UNIT/500 ML BAG IV SCH (14:07)
[2023-08-17] MEDS ORDERED: Ibuprofen 600 MG Tab PO PRN (16:33)
[2023-08-17] MEDS ORDERED: Acetaminophen 325 MG Tab PO PRN (16:33)
[2023-08-17] MEDS ORDERED: Benzocaine/Menthol 20%-0.5% Spray 78 GM Cannister TOP PRN (16:33)
[2023-08-17] MEDS ORDERED: Witch Hazel Medicated Pads 40/Jar TOP PRN (16:33)
[2023-08-18 15:03] VITALS: BP 108/74; PULSE 69
== END 2023-08-18 17:38 | disposition home or self-care (01) | DRG 807 ==
LOC: JD.OBCHECK 04:03 → JD.OB 04:07 → JD.OBCHECK 05:07 → JD.OB 05:15 → OBSVTOIN 14:37
PROVIDERS: ADMIT Obstetrics & Gynecology; ATTEND Obstetrics & Gynecology
PROC: 10E0XZZ Delivery of Products of Conception, External Approach (ICD-10-PCS; principal; 2023-08-17)
PROC: 10907ZC Drainage of Amniotic Fluid, Therapeutic from Products of Conception, Via Natural or Artificial Opening (ICD-10-PCS; 2023-08-17)
DX: O99.824 Streptococcus B carrier state complicating childbirth (principal); Z37.0 Single live birth; Z3A.38 38 weeks gestation of pregnancy; Z88.2 Allergy status to sulfonamides; Z88.8 Allergy status to other drugs, medicaments and biological substances; Z88.1 Allergy status to other antibiotic agents
CPT/HCPCS: 36415; 51701; 59025; 59409; 85025; 86592; 86850; 86870; 86900; 86901; J0290; J2300; J3490; J7999